=== PATIENT | female | born 1990 | race Caucasian/White ===

== ENCOUNTER 2019-04-12 18:09 | Emergency (ER) | payer OTHER ==
[~2019-04-12] VITALS: Ht 165.1 cm; Wt 88.4 kg
[2019-04-12 18:12] VITALS: Ht 165.1 cm; Wt 88.4 kg
[2019-04-12] MEDS ORDERED: ACETAMINOPHEN 325 MG TAB PO STA (20:43)
[2019-04-12] MEDS ORDERED: ONDANSETRON (ODT) 4 MG TAB ODT STA (20:43)
[2019-04-12 22:45] VITALS: BP 117/67; PULSE 54; RESP 20
== END 2019-04-12 22:46 | disposition home or self-care (01) ==
LOC: FTE 18:09
DX: O03.6 Delayed or excessive hemorrhage following complete or unspecified spontaneous abortion (principal); Z87.59 Personal history of other complications of pregnancy, childbirth and the puerperium
CPT/HCPCS: 76801; 76817; 81001; 84702; 85025